=== PATIENT | male | born 1995 | race African-American/Black ===

== ENCOUNTER 2023-05-20 15:01 | Emergency (ER) | payer MEDICAID ==
[2023-05-20 15:19] VITALS: BP 150/71; PULSE 112
[2023-05-20 16:08] LABS: BASOPHILS ABSOLUTE AUTO 0.06 K/uL (0.00-0.10); BASOPHILS PERCENT AUTO 0.4 % (0.1-1.3); BICARBONATE,VENOUS 24.5 mmol/L; CARBOXYHEMOGLOBIN 2.3 % (0.0-1.6); EOSINOPHILS ABSOLUTE AUTO 0.11 K/uL (0.00-0.40); EOSINOPHILS PERCENT AUTO 0.6 % (0.0-5.4); HEMATOCRIT 48.5 % (38.4-49.7); HEMOGLOBIN 16.6 g/dL (12.9-16.9); IMMATURE GRAN ABSOLUTE AUTO 0.14 K/uL (0.00-0.23); IMMATURE GRAN PERCENT AUTO 0.8 % (0.0-0.7); LYMPHOCYTES ABSOLUTE AUTO 1.51 K/uL (0.8-3.3); LYMPHOCYTES PERCENT AUTO 8.9 % (11.4-47.7); MEAN CORPUSCULAR HEMOGLOBIN 32.6 pg (31.6-35.5); MEAN CORPUSCULAR HGB CONC 34.2 g/dL (31.6-35.5); MEAN CORPUSCULAR VOLUME 95.3 fL (81.4-99.0); MONOCYTES ABSOLUTE AUTO 1.02 K/uL (0.20-0.90); NEUTROPHILS ABSOLUTE AUTO 14.22 K/uL (1.0-7.6); NEUTROPHILS PERCENT AUTO 83.3 % (40.0-78.1); PCO2 VENOUS 37.5 mm/Hg; PH,VENOUS 7.432 (7.350-7.450); PLATELET COUNT,PLT 329 K/uL (130-375); PO2 VENOUS 64.2 mm/Hg; RED BLOOD CELL COUNT 5.09 M/uL (4.14-5.76); TOTAL HEMOGLOBIN 17.3 g/dL (13.5-18.0); WHITE BLOOD CELL COUNT,WBC 17.1 K/uL (3.2-11.0)
[2023-05-20 16:15] LABS: APPEARANCE,URINE SLIGHTLY CLOUDY (CLEAR); BILIRUBIN,URINE NEGATIVE (NEGATIVE); COLOR,URINE YELLOW (YELLOW); GLUCOSE,URINE NEGATIVE (NEGATIVE); KETONES,URINE TRACE mg/dL (NEGATIVE); LEUKOCYTE ESTERASE,URINE NEGATIVE (NEGATIVE); NITRITE,URINE NEGATIVE (NEGATIVE); OCCULT BLOOD,URINE TRACE-LYSED (NEGATIVE); PROTEIN,URINE 30 mg/dL (NEGATIVE); UROBILINOGEN,URINE 0.2 EU/dL (0.2-1.0)
[2023-05-20 16:21] LABS: AMPHETAMINES SCREEN, URINE NEGATIVE (NEGATIVE); BARBITURATE SCREEN,URINE NEGATIVE (NEGATIVE); BENZODIAZEPINES SCREEN,URINE PRESUMPTIVE POSITIVE (NEGATIVE); METHAMPHETAMINES SCREEN, URINE NEGATIVE (NEGATIVE)
[2023-05-20 16:22] LABS: METHADONE SCREEN, URINE NEGATIVE (NEGATIVE); OXYCODONE SCREEN,URINE NEGATIVE (NEGATIVE); PROPOXYPHENE SCREEN,URINE NEGATIVE (NEGATIVE); THC SCREEN,URINE 50 NG/ML PRESUMPTIVE POSITIVE (NEGATIVE)
[2023-05-20 16:23] LABS: PROTHROMBIN TIME 10.3 sec (9.2-10.6)
[2023-05-20 16:24] LABS: AMORPHOUS SEDIMENT,URINE NOT SEEN; BACTERIA,URINE RARE; EPITHELIAL CELLS,URINE RARE; MUCUS,URINE MANY; RBC,URINE 0-5 (0-5); WBC,URINE 0-5 (0-5)
[2023-05-20 16:27] LABS: CORONAVIRUS COVID-19 NAA NEGATIVE (NEGATIVE); INFLUENZA A NAA NEGATIVE (NEGATIVE); INFLUENZA B NAA NEGATIVE (NEGATIVE); RESPIRATORY SYNCYTIAL VIR NAA NEGATIVE (NEGATIVE)
[2023-05-20 16:38] LABS: A/G RATIO 0.9 (1.2-2.2); ALANINE AMINOTRANSFERASE,ALT 39 U/L (12-78); ALKALINE PHOSPHATASE 79 U/L (46-116); ANION GAP 14.1 mmol/L (5.0-14.0); ASPARTATE AMNIOTRANSFERASE,AST 31 U/L (15-37); BILIRUBIN TOTAL 1.5 mg/dL (0.2-1.0); BLOOD UREA NITROGEN,BUN 11 mg/dL (7-18); CALCIUM 8.6 mg/dL (8.5-10.1); CARBON DIOXIDE,CO2 26 mmol/L (21-32); CHLORIDE,CL 102 mmol/L (100-108); CREATININE 0.8 mg/dL (0.8-1.3); EST CRCL DRUG DOSING (CG) 139.41 mL/min; ESTIMATED GFR 122 mL/min (>60); GLUCOSE RANDOM 102 mg/dL (74-106); POTASSIUM,K 4.1 mmol/L (3.6-5.2); PRO B-TYPE NATRIUR PEPT,BNPPRO 28 pg/mL (5-125); PROTEIN TOTAL,TP 8.3 g/dL (6.4-8.2); SODIUM,NA 138 mmol/L (140-148)
== END 2023-05-20 17:15 | disposition home or self-care (01) ==
LOC: JP.ED 15:01
DX: R07.9 Chest pain, unspecified (principal); F41.9 Anxiety disorder, unspecified; F15.10 Other stimulant abuse, uncomplicated; F17.210 Nicotine dependence, cigarettes, uncomplicated; F17.290 Nicotine dependence, other tobacco product, uncomplicated; Z79.899 Other long term (current) drug therapy
CPT/HCPCS: 0241U; 36415; 71046; 80053; 80305; 81001; 82803; 83880; 84145; 84484; 85025; 85379; 85610; 93005; 99285

== ENCOUNTER 2023-05-23 09:49 | Emergency (ER) | payer SELFPAY ==
[2023-05-23 10:18] VITALS: BP 147/88; PULSE 104
== END 2023-05-23 12:00 | disposition home or self-care (01) ==
LOC: JP.ED 09:49
DX: J02.9 Acute pharyngitis, unspecified (principal); F17.210 Nicotine dependence, cigarettes, uncomplicated; Z79.899 Other long term (current) drug therapy
CPT/HCPCS: 87651-QW; 99283

== ENCOUNTER 2023-06-01 09:31 | Emergency (ER) | payer SELFPAY ==
[2023-06-01 10:20] VITALS: BP 137/97; PULSE 100
[2023-06-01 10:46] LABS: CORONAVIRUS COVID-19 NAA NEGATIVE (NEGATIVE); INFLUENZA A NAA NEGATIVE (NEGATIVE); INFLUENZA B NAA NEGATIVE (NEGATIVE); RESPIRATORY SYNCYTIAL VIR NAA POSITIVE (NEGATIVE)
== END 2023-06-01 10:39 | disposition home or self-care (01) ==
LOC: JP.ED 09:31
DX: J06.9 Acute upper respiratory infection, unspecified (principal); F17.210 Nicotine dependence, cigarettes, uncomplicated; Z79.899 Other long term (current) drug therapy
CPT/HCPCS: 0241U; 99283

== ENCOUNTER 2023-11-07 16:37 | Emergency (ER) | payer MEDICAID ==
[2023-11-07 19:38] VITALS: BP 130/74; PULSE 87
== END 2023-11-07 19:25 | disposition home or self-care (01) ==
LOC: JP.ED 16:37
DX: M53.3 Sacrococcygeal disorders, not elsewhere classified (principal); Z79.899 Other long term (current) drug therapy
CPT/HCPCS: 99283

== ENCOUNTER 2023-12-16 09:29 | Emergency (ER) | payer MEDICAID ==
[2023-12-16 10:00] VITALS: BP 142/93; PULSE 76
[2023-12-16] MEDS: Cyclobenzaprine 10 MG Tab PO ONE (10:46)
== END 2023-12-16 10:52 | disposition home or self-care (01) ==
LOC: JP.ED 09:29
DX: M54.41 Lumbago with sciatica, right side (principal); F17.210 Nicotine dependence, cigarettes, uncomplicated; Z79.899 Other long term (current) drug therapy
CPT/HCPCS: 99283; A9270

== ENCOUNTER 2024-02-22 12:06 | Emergency (ER) | payer MEDICAID ==
[2024-02-22 12:22] VITALS: BP 138/88; PULSE 102
== END 2024-02-22 15:17 | disposition home or self-care (01) ==
LOC: JP.ED 12:06
DX: M54.50 Low back pain, unspecified (principal); Z79.899 Other long term (current) drug therapy; W17.89XA Other fall from one level to another, initial encounter
CPT/HCPCS: 70450; 70450-26; 72125; 72125-26; 72131; 72131-26; 76377; 76377-26; 99284

== ENCOUNTER 2024-03-29 10:23 | Emergency (ER) | payer MEDICAID ==
[2024-03-29 11:10] VITALS: BP 150/96; PULSE 92
== END 2024-03-29 11:42 | disposition home or self-care (01) ==
LOC: JP.ED 10:23
DX: M54.41 Lumbago with sciatica, right side (principal); G89.29 Other chronic pain; Z79.899 Other long term (current) drug therapy
CPT/HCPCS: 99283

== ENCOUNTER 2024-04-18 16:46 | Emergency (ER) | payer MEDICAID ==
[2024-04-18 17:10] VITALS: BP 126/80; PULSE 91
== END 2024-04-18 18:37 | disposition home or self-care (01) ==
LOC: JP.ED 16:46
DX: M54.50 Low back pain, unspecified (principal); I10 Essential (primary) hypertension; Z87.891 Personal history of nicotine dependence; Z88.5 Allergy status to narcotic agent; Z79.899 Other long term (current) drug therapy
CPT/HCPCS: 99283

== ENCOUNTER 2024-05-24 10:47 | Emergency (ER) | payer MEDICAID ==
[2024-05-24 10:57] VITALS: BP 154/92; PULSE 85
== END 2024-05-24 11:15 | disposition left against medical advice (07) ==
LOC: JP.ED 10:47
DX: Z53.21 Procedure and treatment not carried out due to patient leaving prior to being seen by health care provider (principal)

== ENCOUNTER 2024-10-08 17:16 | Emergency (ER) | payer MEDICAID | END 2024-10-08 18:12 | disposition left against medical advice (07) | LOC: JP.ED 17:16 | DX: Z53.21 Procedure and treatment not carried out due to patient leaving prior to being seen by health care provider (principal) ==

== ENCOUNTER 2024-10-09 11:16 | Emergency (ER) | payer MEDICAID ==
[2024-10-09 11:28] VITALS: BP 130/95; PULSE 103
== END 2024-10-09 12:11 | disposition home or self-care (01) ==
LOC: JP.ED 11:16
DX: K04.7 Periapical abscess without sinus (principal); I10 Essential (primary) hypertension; Z88.5 Allergy status to narcotic agent; Z79.899 Other long term (current) drug therapy
CPT/HCPCS: 99282; 99283